=== PATIENT | female | born 1995 | race African-American/Black ===

== ENCOUNTER 2016-12-11 11:50 | Inpatient (IN) | payer MEDICAID ==
[~2016-12-11] VITALS: Ht 165.1 cm; Wt 111.9 kg
[2016-12-11] MEDS ORDERED: BACITRACIN TOP OINT 1 UD PKG TOP ONE (13:30)
[2016-12-11] MEDS ORDERED: VANCOMYCIN 1GM/250ML D5W 250 ML IV ONE (13:30)
[2016-12-11] MEDS ORDERED: TETANUS-DIPTH-ACEL PERTUSSIS 0.5ML SYRG IM ONE (13:30)
[2016-12-11] MEDS ORDERED: PIPERACILLIN-TAZOB 3.375GM 100 ML IV ONE (13:30)
[2016-12-11] MEDS ORDERED: KETOROLAC TROMETH 30 MG/ML 1ML VIAL IV ONE (13:30)
[2016-12-11] MEDS ORDERED: LORazepam 2MG/ML-1ML VIAL IV ONE (13:30)
[2016-12-11 13:59] LABS: Basophils # (auto) 0 uL; Basophils % (auto) 0.3 % (0.0-2.0); DEFINITIVE VIEW TRANSMISSION; Eosinophils # (auto) 0.1 uL; Eosinophils % (auto) 0.8 % (0.0-7.0); Hemoglobin 12.1 g/dL (12.2-16.2); Lymphocytes # (auto) 1.8 uL; Mean Platelet Volume 7.6 fL (7.4-10.4); Monocytes # (auto) 0.4 uL; Monocytes % (auto) 4.9 % (0.0-12.0)
[2016-12-11 14:03] LABS: Hematocrit 36.9 % (36.0-46.0); Lymphocytes % (auto) 21.1 % (10.0-50.0); Mean Corpuscular Hemoglobin 28.5 pg (28.0-32.0); Mean Corpuscular Hgb Conc. 32.7 g/dL (32.0-36.0); Mean Corpuscular Volume 87.2 fL (80.0-100.0); Neutrophils # (auto) 6.3 uL; Neutrophils % (auto) 72.9 % (37.0-80.0); Platelet Count (auto) 394 10^3/uL (140-450); Red Cell Distribution Width 19.2 % (11.6-16.0); White Blood Cell 8.6 10^3/uL (4.4-10.8)
[2016-12-11 14:32] LABS: Albumin 3.4 g/dL (3.4-5.0); BUN/Creatinine Ratio 4.3; Bilirubin, Total 0.4 mg/dL (0.2-1.0); Calcium 8.9 mg/dL (8.5-10.1); Potassium 3.8 mmol/L (3.5-5.1); Total Protein 7.6 g/dL (6.4-8.2)
[2016-12-11] MEDS ORDERED: ACETAMINOPHEN 325 MG TAB PO PRN (17:30)
[2016-12-11] MEDS ORDERED: VANCOMYCIN PER PHARMACY 0 MG IV SCH (17:30)
[2016-12-11] MEDS ORDERED: TEMAZEPAM 15 MG CAP PO PRN (17:30)
[2016-12-11] MEDS ORDERED: DOCUSATE SOD 100 MG CAP PO PRN (17:30)
[2016-12-11] MEDS ORDERED: cefTRIAXone 1GM/50ML D5W 50 ML IV ONE (18:15)
[2016-12-11] MEDS ORDERED: MULTIPLE VITAMIN TAB PO ONE (18:15)
[2016-12-11 18:44] LABS: Urine Bilirubin Negative (Negative); Urine Blood Negative /uL (Negative); Urine Color Yellow (Yellow); Urine Ketone Negative (Negative); Urine Nitrite Negative (Negative); Urine RBC 1 /hpf (0 - 4); Urine Squamous Epithelial Cell FEW /hpf (<5); Urine Urobilinogen Normal (Negative); Urine pH 6.5 (5.0-8.0)
[2016-12-11 18:45] LABS: Urine Glucose 4+ mg/dL (Normal)
[2016-12-11] MEDS: MORPHINE SULF INJ 2 MG/ML SYRINGE 1ML IV PRN (20:10)
[2016-12-11] MEDS: ONDANSETRON HCL 4 MG/2 ML VIAL IV PRN (20:10)
[2016-12-11 21:15] VITALS: BP 132/58
[2016-12-11] MEDS: HYDROcodone-ACET 5/325MG TAB PO PRN (21:47)
[2016-12-11] MEDS: SODIUM CHLOR 0.9% PF (SALINE LOCK) 10ML VIAL IV SCH (23:17)
[2016-12-11] MEDS: VANCOMYCIN 1GM/250ML D5W 250 ML IV SCH (23:17)
[2016-12-11] MEDS: ASCORBIC ACID 500 MG TAB PO SCH (23:18)
[2016-12-11] MEDS: FAMOTIDINE 20 MG TAB PO SCH (23:18)
[2016-12-12] MEDS: MORPHINE SULF INJ 2 MG/ML SYRINGE 1ML IV PRN ×3 (00:28→10:11)
[2016-12-12] MEDS: ONDANSETRON HCL 4 MG/2 ML VIAL IV PRN ×3 (00:37→06:36)
[2016-12-12] MEDS ORDERED: diphenhdrAMINE HCL 25 MG CAP PO ONE (01:30)
[2016-12-12] MEDS: SODIUM CHLOR 0.9% PF (SALINE LOCK) 10ML VIAL IV SCH (05:31)
[2016-12-12] MEDS: VANCOMYCIN 1GM/250ML D5W 250 ML IV SCH ×2 (05:37→14:00)
[2016-12-12 06:47] LABS: Basophils # (auto) 0 uL; Basophils % (auto) 0.2 % (0.0-2.0); DEFINITIVE VIEW TRANSMISSION; Eosinophils # (auto) 0.1 uL; Eosinophils % (auto) 1.1 % (0.0-7.0); Hematocrit 33.5 % (36.0-46.0); Hemoglobin 10.9 g/dL (12.2-16.2); Lymphocytes # (auto) 1.9 uL; Lymphocytes % (auto) 25.2 % (10.0-50.0); Mean Corpuscular Hemoglobin 28.5 pg (28.0-32.0); Mean Corpuscular Hgb Conc. 32.5 g/dL (32.0-36.0); Mean Corpuscular Volume 87.7 fL (80.0-100.0); Mean Platelet Volume 8.1 fL (7.4-10.4); Monocytes # (auto) 0.3 uL; Monocytes % (auto) 3.8 % (0.0-12.0); Neutrophils # (auto) 5.3 uL; Neutrophils % (auto) 69.7 % (37.0-80.0); Platelet Count (auto) 336 10^3/uL (140-450); Red Cell Distribution Width 19.2 % (11.6-16.0); White Blood Cell 7.6 10^3/uL (4.4-10.8)
[2016-12-12 07:00] LABS: Albumin 2.9 g/dL (3.4-5.0); BUN/Creatinine Ratio 3.3; Bilirubin, Total 0.5 mg/dL (0.2-1.0); Calcium 8.4 mg/dL (8.5-10.1); Potassium 3.4 mmol/L (3.5-5.1); Total Protein 6.6 g/dL (6.4-8.2)
[2016-12-12 08:00] VITALS: BP 104/63
[2016-12-12 09:00] VITALS: BP 104/63
[2016-12-12] MEDS ORDERED: cefTRIAXone 1GM/50ML D5W 50 ML IV SCH (09:00)
[2016-12-12] MEDS ORDERED: ZINC SULFATE 220 MG CAP PO SCH (10:00)
[2016-12-12] MEDS ORDERED: MULTIPLE VITAMIN TAB PO SCH (10:00)
[2016-12-12] MEDS: FAMOTIDINE 20 MG TAB PO SCH (10:11)
[2016-12-12] MEDS: ASCORBIC ACID 500 MG TAB PO SCH (10:12)
[2016-12-12 13:00] VITALS: BP 107/64
[2016-12-12] MEDS ORDERED: LEVO500T3 PO (13:09)
[2016-12-12] MEDS ORDERED: CLIN1CAP4 PO (13:09)
[2016-12-12] MEDS ORDERED: NOR5T PO (13:09)
[2016-12-12] MEDS: HYDROcodone-ACET 5/325MG TAB PO PRN (15:08)
[2016-12-12 15:21] VITALS: BP 104/63
[2016-12-12 16:02] VITALS: BP 122/86
== END 2016-12-12 18:00 | disposition home health service (06) | DRG 384 ==
LOC: ER 11:50 → TELE 11:51 → WEST WING 21:10
PROVIDERS: ADMIT Internal Medicine; ATTEND Internal Medicine
DX: S81.802A Unspecified open wound, left lower leg, initial encounter (principal); N39.0 Urinary tract infection, site not specified; L03.116 Cellulitis of left lower limb; F31.9 Bipolar disorder, unspecified; N18.2 Chronic kidney disease, stage 2 (mild); F17.210 Nicotine dependence, cigarettes, uncomplicated; F41.9 Anxiety disorder, unspecified; R39.11 Hesitancy of micturition; V49.40XA Driver injured in collision with unspecified motor vehicles in traffic accident, initial encounter; Y93.89 Activity, other specified; Y92.488 Other paved roadways as the place of occurrence of the external cause; Y99.8 Other external cause status
CPT/HCPCS: 36415; 80053; 81001; 85025; 87040; 87077; 87186; 87205; 90715; 93971; 96365; 96367; 96372; 96375; J0696; J1885; J2405; J2543

== ENCOUNTER 2017-05-27 09:29 | Emergency (ER) | payer MEDICAID ==
[~2017-05-27] VITALS: Ht 157.5 cm; Wt 63.5 kg
[~2017-05-27 09:29] MED LIST: CLIN1CAP4 PO; HYDR-4683 PO; LEVO500T21 PO
[2017-05-27 10:36] VITALS: BP 143/85
[2017-05-27 10:42] LABS: Urine RBC None Seen /hpf (0 - 4)
[2017-05-27 10:46] LABS: Basophils # (auto) 0 uL; Basophils % (auto) 0.5 % (0.0-2.0); Eosinophils # (auto) 0 uL; Eosinophils % (auto) 0.5 % (0.0-7.0); Hematocrit 36.4 % (36.0-46.0); Hemoglobin 11.8 g/dL (12.2-16.2); Lymphocytes # (auto) 1.3 uL; Lymphocytes % (auto) 13.6 % (10.0-50.0); Mean Corpuscular Hemoglobin 30.8 pg (28.0-32.0); Mean Corpuscular Hgb Conc. 32.4 g/dL (32.0-36.0); Mean Platelet Volume 6.8 fL (6.9-10.8); Monocytes # (auto) 0.6 uL; Monocytes % (auto) 5.7 % (0.0-12.0); Neutrophils # (auto) 7.7 uL; Neutrophils % (auto) 79.7 % (37.0-80.0); Platelet Count (auto) 405 10^3/uL (140-450); White Blood Cell 9.7 10^3/uL (4.4-10.8)
[2017-05-27 10:57] LABS: Red Cell Distribution Width 20.3 % (11.8-14.3)
[2017-05-27 11:01] LABS: Urine Bilirubin Negative (Negative); Urine Blood Negative /uL (Negative); Urine Color Yellow (Yellow); Urine Glucose Normal (Normal); Urine Ketone Negative (Negative); Urine Mucus FEW (None Seen); Urine Nitrite Negative (Negative); Urine Squamous Epithelial Cell MOD /hpf (<5); Urine Urobilinogen Normal (Negative)
[2017-05-27 11:16] LABS: BUN/Creatinine Ratio 9.7; Bilirubin, Total 0.3 mg/dL (0.2-1.0); Calcium 8.5 mg/dL (8.5-10.1); Potassium 4.1 mmol/L (3.5-5.1); Total Protein 7.8 g/dL (6.4-8.2)
[2017-05-27 11:21] LABS: Anisocytosis Slight; Platelet Estimate Adequate
== END 2017-05-27 14:50 | disposition home or self-care (01) ==
LOC: ER 09:29
DX: N39.0 Urinary tract infection, site not specified (principal); Z91.040 Latex allergy status; F17.210 Nicotine dependence, cigarettes, uncomplicated
CPT/HCPCS: 36415; 80053; 81001; 81025; 82150; 83690; 85025

== ENCOUNTER 2018-01-05 09:39 | Emergency (ER) | payer SELFPAY ==
[~2018-01-05] VITALS: Ht 165.1 cm; Wt 113.4 kg
[2018-01-05 09:58] VITALS: BP 138/96
[2018-01-05 10:17] LABS: Basophils # (auto) 0 uL; Basophils % (auto) 0.4 % (0.0-2.0); Eosinophils # (auto) 0 uL; Eosinophils % (auto) 0.2 % (0.0-7.0); Hematocrit 42.5 % (36.0-46.0); Lymphocytes # (auto) 1.5 uL; Lymphocytes % (auto) 14.4 % (10.0-50.0); Mean Corpuscular Hemoglobin 30.4 pg (28.0-32.0); Mean Corpuscular Volume 92.2 fL (80.0-100.0); Monocytes # (auto) 0.5 uL; Monocytes % (auto) 4.9 % (0.0-12.0); Neutrophils # (auto) 8.5 uL; Neutrophils % (auto) 80.1 % (37.0-80.0); Nucleated Red Blood Cells % 0.1 %; Platelet Count (auto) 388 10^3/uL (140-450); Red Blood Cells 4.61 10^6/uL (4.0-5.20); Red Cell Distribution Width 16.6 % (11.8-14.3); White Blood Cell 10.6 10^3/uL (4.4-10.8)
[2018-01-05] MEDS ORDERED: PANTOPRAZOLE 40 MG/10 ML VIAL IV STA (10:25)
[2018-01-05] MEDS ORDERED: SODIUM CHLORIDE 0.9% 1,000 ML IVB ONE (10:25)
[2018-01-05] MEDS ORDERED: MORPHINE SULFATE 8mg/ml INJ SDV IV ONE (10:30)
[2018-01-05] MEDS ORDERED: ONDANSETRON HCL 4 MG/2 ML VIAL IV ONE ×2 (10:30→11:30)
[2018-01-05 10:35] LABS: Alanine Aminotransferase 62 U/L (13-56); Albumin 3.6 g/dL (3.4-5.0); Amylase 48 U/L (25-115); Anion Gap 14 (5-15); Aspartate Aminotransferase 70 U/L (15-37); BUN/Creatinine Ratio 4.8; Blood Urea Nitrogen 4 mg/dL (7-18); Calcium 9.3 mg/dL (8.5-10.1); Carbon Dioxide 25 mmol/L (21-32); Chloride 98 mmol/L (98-107); GFR African American 107 mL/min; GFR Non-African American 89 mL/min; Glucose 98 mg/dL (74-106); Lipase 113 U/L (73-393); Sodium 137 mmol/L (136-145)
[2018-01-05 10:40] LABS: Alkaline Phosphatase 93 U/L (45-117); Bilirubin, Total 0.8 mg/dL (0.2-1.0); Total Protein 8.7 g/dL (6.4-8.2)
[2018-01-05 10:48] LABS: Potassium 2.9 mmol/L (3.5-5.1)
[2018-01-05] MEDS ORDERED: POTASSIUM CHL 20 Meq TABLET PO ONE (11:00)
[2018-01-05] MEDS ORDERED: ONDANSETRON HCL 4 MG/2 ML VIAL ONE (11:31)
[2018-01-05] MEDS ORDERED: PROCHLORPERAZINE EDISYLATE 5 MG/ML 2ML VIAL IV ONE (12:30)
== END 2018-01-05 13:34 | disposition home or self-care (01) ==
LOC: ER 09:39
DX: R11.10 Vomiting, unspecified (principal); R10.11 Right upper quadrant pain; E87.6 Hypokalemia; F17.210 Nicotine dependence, cigarettes, uncomplicated; Z87.442 Personal history of urinary calculi; Z91.040 Latex allergy status
CPT/HCPCS: 36415; 76705; 80053; 82150; 83690; 84484; 84702; 85025; 94761; 96361; 96374; 96375; 96376; 99285; C9113; J0780; J2270; J2405; J7030

== ENCOUNTER 2018-01-09 17:04 | Emergency (ER) | payer SELFPAY ==
[~2018-01-09] VITALS: Ht 165.1 cm; Wt 114.3 kg
[2018-01-09 17:11] VITALS: BP 143/103
== END 2018-01-09 19:56 | disposition left against medical advice (07) ==
LOC: ER 17:04
DX: K29.70 Gastritis, unspecified, without bleeding (principal); F17.210 Nicotine dependence, cigarettes, uncomplicated; F12.10 Cannabis abuse, uncomplicated; Z87.442 Personal history of urinary calculi; Z91.040 Latex allergy status; Z53.29 Procedure and treatment not carried out because of patient's decision for other reasons

== ENCOUNTER 2018-03-26 15:00 | Emergency (ER) | payer MEDICAID ==
[~2018-03-26] VITALS: Ht 165.1 cm; Wt 113.4 kg
[2018-03-26 15:30] VITALS: BP 143/105
[2018-03-26] MEDS ORDERED: cefTRIAXone SOD 1,000 MG VL IM ONE (19:45)
[2018-03-26] MEDS ORDERED: LIDOCAINE 1% (LOCAL ANESTH.) PF 5ml SDV ONE (19:50)
[2018-03-26] MEDS ORDERED: KETOROLAC TROMETH 60MG/2ML VIAL IM ONE (20:00)
[2018-03-26] MEDS ORDERED: HYDROcodone-ACET 10/325MG TAB PO ONE (21:00)
[2018-03-26] MEDS ORDERED: PROMETHAZINE HCL 25 MG/ML 1ML IM ONE (21:00)
== END 2018-03-26 21:20 | disposition home or self-care (01) ==
LOC: ER 15:00
DX: K63.89 Other specified diseases of intestine (principal); F17.210 Nicotine dependence, cigarettes, uncomplicated
CPT/HCPCS: 74176; 96372; 99284; J0696; J1885; J2550

== ENCOUNTER 2018-04-03 08:52 | Emergency (ER) | payer MEDICAID ==
[~2018-04-03] VITALS: Ht 162.6 cm; Wt 113.4 kg
[2018-04-03] MEDS ORDERED: SODIUM CHLORIDE 0.9% 1,000 ML IV ONE ×3 (09:23→09:30)
[2018-04-03] MEDS ORDERED: KETOROLAC TROMETH 30 MG/ML 1ML VIAL IV ONE (09:30)
[2018-04-03] MEDS ORDERED: ONDANSETRON HCL 4 MG/2 ML VIAL IV ONE (09:30)
[2018-04-03 09:41] LABS: Basophils # (auto) 0 uL; Basophils % (auto) 0.3 % (0.0-2.0); Eosinophils # (auto) 0.1 uL; Hematocrit 39.1 % (36.0-46.0); Hemoglobin 12.8 g/dL (12.2-16.2); Lymphocytes # (auto) 1.5 uL; Lymphocytes % (auto) 18.2 % (10.0-50.0); Mean Corpuscular Hemoglobin 31.1 pg (28.0-32.0); Mean Corpuscular Hgb Conc. 32.9 g/dL (32.0-36.0); Mean Corpuscular Volume 94.7 fL (80.0-100.0); Monocytes # (auto) 0.5 uL; Neutrophils # (auto) 6.1 uL; Neutrophils % (auto) 74.5 % (37.0-80.0); Nucleated Red Blood Cells % 0.1 %; Platelet Count (auto) 379 10^3/uL (140-450); Red Blood Cells 4.12 10^6/uL (4.0-5.20); White Blood Cell 8.2 10^3/uL (4.4-10.8)
[2018-04-03 09:45] LABS: Red Cell Distribution Width 20.7 % (11.8-14.3)
[2018-04-03 09:52] LABS: Albumin 3.1 g/dL (3.4-5.0); BUN/Creatinine Ratio 4.7; Calcium 8.4 mg/dL (8.5-10.1)
[2018-04-03 09:54] LABS: Bilirubin, Total 0.4 mg/dL (0.2-1.0); Total Protein 7.5 g/dL (6.4-8.2)
[2018-04-03 10:00] LABS: Potassium 2.9 mmol/L (3.5-5.1)
[2018-04-03] MEDS ORDERED: POTASSIUM EFFERVESENT TAB 25 MEQ PO ONE (10:15)
[2018-04-03 10:40] LABS: Urine Bacteria NONE SEEN /hpf (None Seen); Urine Blood 3+ /uL (Negative); Urine Mucus FEW (None Seen); Urine Specific Gravity 1.015 (1.001-1.035); Urine WBC 168 /hpf (0 - 5)
[2018-04-03 11:06] VITALS: BP 125/72
== END 2018-04-03 12:06 | disposition home or self-care (01) ==
LOC: ER 08:53
DX: N20.0 Calculus of kidney (principal); N39.0 Urinary tract infection, site not specified; R11.2 Nausea with vomiting, unspecified; F17.210 Nicotine dependence, cigarettes, uncomplicated; F12.10 Cannabis abuse, uncomplicated; Z91.040 Latex allergy status; Z88.1 Allergy status to other antibiotic agents
CPT/HCPCS: 36415; 74176; 80053; 81001; 85025; 94761; 96361; 96374; 96375; 99285; J1885; J2405

== ENCOUNTER 2018-07-28 01:23 | Emergency (ER) | payer MEDICAID ==
[~2018-07-28] VITALS: Ht 170.2 cm; Wt 99.8 kg
[~2018-07-28 01:23] MED LIST changes: +CIPR-173 PO; -CLIN1CAP4 PO; -HYDR-4683 PO; -LEVO500T21 PO; +PANT40T PO; +SUCR1TAB PO
[2018-07-28] MEDS ORDERED: SODIUM CHLORIDE 0.9% 1,000 ML IV ONE (02:02)
[2018-07-28 02:12] LABS: Basophils # (auto) 0.1 uL; Basophils % (auto) 0.5 % (0.0-2.0); Eosinophils # (auto) 0 uL; Eosinophils % (auto) 0.2 % (0.0-7.0); Hemoglobin 13.1 g/dL (12.2-16.2); Lymphocytes # (auto) 2.4 uL; Lymphocytes % (auto) 19.7 % (10.0-50.0); Mean Corpuscular Hgb Conc. 33.5 g/dL (32.0-36.0); Mean Corpuscular Volume 89.5 fL (80.0-100.0); Monocytes # (auto) 0.7 uL; Monocytes % (auto) 5.9 % (0.0-12.0); Neutrophils # (auto) 9.1 uL; Neutrophils % (auto) 73.7 % (37.0-80.0); Nucleated Red Blood Cells % 0.1 %; Platelet Count (auto) 465 10^3/uL (140-450); Red Blood Cells 4.35 10^6/uL (4.0-5.20); White Blood Cell 12.3 10^3/uL (4.4-10.8)
[2018-07-28 02:13] LABS: Red Cell Distribution Width 20.1 % (11.8-14.3)
[2018-07-28] MEDS ORDERED: PROMETHAZINE HCL 25 MG/ML 1ML IV ONE ×2 (02:15→02:30)
[2018-07-28 02:26] LABS: Partial Thromboplastin Time 27.3 sec (23.78-33.04); Prothrombin Time 10.7 sec (9.27-12.13)
[2018-07-28] MEDS ORDERED: diphenhdrAMINE HCL 50 MG/1 ML VL IV ONE (02:45)
[2018-07-28 02:51] LABS: Alanine Aminotransferase 29 U/L (13-56); Albumin 3.7 g/dL (3.4-5.0); Anion Gap 16 (5-15); Aspartate Aminotransferase 28 U/L (15-37); BUN/Creatinine Ratio 5.1; Blood Alcohol < 3.0 mg/dL (0-5); Blood Urea Nitrogen 4 mg/dL (7-18); Calcium 8.8 mg/dL (8.5-10.1); Carbon Dioxide 16 mmol/L (21-32); Chloride 105 mmol/L (98-107); GFR African American 117 mL/min; GFR Non-African American 96 mL/min; Glucose 145 mg/dL (74-106); Sodium 137 mmol/L (136-145)
[2018-07-28 02:56] LABS: Potassium 2.9 mmol/L (3.5-5.1)
[2018-07-28 02:59] LABS: Amylase 93 U/L (25-115); Lipase 405 U/L (73-393)
[2018-07-28 03:00] LABS: Alkaline Phosphatase 89 U/L (45-117); Bilirubin, Total 0.9 mg/dL (0.2-1.0); Total Protein 8.1 g/dL (6.4-8.2)
[2018-07-28] MEDS ORDERED: POTASSIUM CHL 20MEQ/100ML 100 ML IV ONE (03:00)
[2018-07-28] MEDS ORDERED: MORPHINE SULFATE 4 MG/ML SYR/VIAL IV ONE ×2 (03:30→04:00)
[2018-07-28] MEDS ORDERED: POTASSIUM EFFERVESENT TAB 25 MEQ PO ONE (04:00)
[2018-07-28 04:06] LABS: Urine Bacteria FEW /hpf (None Seen); Urine Blood Negative /uL (Negative); Urine Mucus FEW (None Seen); Urine Specific Gravity 1.022 (1.001-1.035); Urine WBC 2 /hpf (0 - 5)
[2018-07-28 04:12] LABS: Urine Pregnacy Test Positive (Negative)
[2018-07-28 04:14] LABS: Alcohol, Urine < 3.0 mg/dL (0-5); Amphetamine Screen, Urine NEGATIVE (NEGATIVE); Barbiturate Scree,Urine NEGATIVE (NEGATIVE); Benzodiazephine Screen, Urine NEGATIVE (NEGATIVE); Cannabinoid Screen, Urine POSITIVE (NEGATIVE); Cocaine Screen, Urine NEGATIVE (NEGATIVE); Opiate Scree,Urine NEGATIVE (NEGATIVE); Phencyclidine Screen, Urine NEGATIVE (NEGATIVE)
[2018-07-28] MEDS ORDERED: METOCLOPRAMIDE HCL 5MG/ml INJ 2ml VIAL IV ONE ×2 (04:45→05:00)
[2018-07-28] MEDS ORDERED: ONDANSETRON HCL 4 MG/2 ML VIAL IV ONE (07:30)
[2018-07-28] MEDS ORDERED: HYDROmorphone HCL 2 MG/ML VL IV ONE (07:30)
[2018-07-28 07:31] VITALS: BP 138/73
== END 2018-07-28 07:48 | disposition home or self-care (01) ==
LOC: EDBD 01:23 → ER 01:31
DX: O21.1 Hyperemesis gravidarum with metabolic disturbance (principal); K85.90 Acute pancreatitis without necrosis or infection, unspecified; O99.331 Smoking (tobacco) complicating pregnancy, first trimester; F17.210 Nicotine dependence, cigarettes, uncomplicated; O99.321 Drug use complicating pregnancy, first trimester; F11.10 Opioid abuse, uncomplicated; F12.10 Cannabis abuse, uncomplicated; Z3A.00 Weeks of gestation of pregnancy not specified; Z91.040 Latex allergy status
CPT/HCPCS: 36415; 76705; 76801; 76817; 80053; 80307; 80320; 81001; 81025; 82150; 83690; 84702; 85025; 85610; 85730; 94761; 96361; 96365; 96375; 99284; J1170; J1200; J2270; J2405; J2550; J2765; J3480; J7030

== ENCOUNTER 2018-07-29 08:22 | Inpatient (IN) | payer MEDICAID ==
[~2018-07-29] VITALS: Ht 165.1 cm; Wt 106.0 kg
[2018-07-29 09:12] LABS: Basophils # (auto) 0 uL; Eosinophils % (auto) 0.4 % (0.0-7.0); Hematocrit 40.8 % (36.0-46.0); Mean Corpuscular Hemoglobin 30.2 pg (28.0-32.0); Monocytes # (auto) 0.7 uL; Nucleated Red Blood Cells % 0.1 %
[2018-07-29 09:14] LABS: Basophils % (auto) 0.3 % (0.0-2.0); Eosinophils # (auto) 0 uL; Hemoglobin 13.6 g/dL (12.2-16.2); Lymphocytes # (auto) 1.2 uL; Lymphocytes % (auto) 10.4 % (10.0-50.0); Mean Corpuscular Hgb Conc. 33.2 g/dL (32.0-36.0); Mean Corpuscular Volume 90.9 fL (80.0-100.0); Monocytes % (auto) 5.6 % (0.0-12.0); Neutrophils % (auto) 83.3 % (37.0-80.0); Platelet Count (auto) 486 10^3/uL (140-450); Red Blood Cells 4.49 10^6/uL (4.0-5.20)
[2018-07-29 09:18] LABS: Red Cell Distribution Width 20.5 % (11.8-14.3)
[2018-07-29 09:28] LABS: Albumin 3.7 g/dL (3.4-5.0); BUN/Creatinine Ratio 2.4; Calcium 9.1 mg/dL (8.5-10.1)
[2018-07-29 09:31] LABS: Total Protein 8.3 g/dL (6.4-8.2)
[2018-07-29] MEDS ORDERED: SODIUM CHLORIDE 0.9% 1,000 ML IV ONE (10:43)
[2018-07-29] MEDS ORDERED: cefTRIAXone 1GM/50ML D5W 50 ML IV ONE (10:45)
[2018-07-29 12:22] LABS: Amylase 80 U/L (25-115); Lipase 258 U/L (73-393)
[2018-07-29] MEDS: D5W/SOD CHL 0.45%/KCL 40MEQ 1,000 ML IV SCH ×2 (12:30→21:57)
[2018-07-29] MEDS ORDERED: ACETAMINOPHEN 500 MG TAB PO PRN (12:30)
[2018-07-29] MEDS ORDERED: POTASSIUM EFFERVESENT TAB 25 MEQ PO ONE (12:30)
[2018-07-29] MEDS: PANTOPRAZOLE 40 MG TAB PO SCH (12:40)
[2018-07-29] MEDS: METOCLOPRAMIDE HCL 5MG/ml INJ 2ml VIAL IV SCH ×2 (12:59→18:32)
[2018-07-29] MEDS ORDERED: PROMETHAZINE HCL 25 MG/ML 1ML IV ONE (14:00)
[2018-07-29] MEDS ORDERED: ACETAMINOPHEN 650 mg PER 20 mL UD PO ONE (14:00)
[2018-07-29] MEDS ORDERED: MORPHINE SULFATE 4 MG/ML SYR/VIAL IV ONE (15:30)
[2018-07-29 16:36] LABS: Urine Bacteria NONE SEEN /hpf (None Seen); Urine Blood Negative /uL (Negative); Urine Mucus FEW (None Seen); Urine Specific Gravity 1.016 (1.001-1.035); Urine WBC 1 /hpf (0 - 5)
[2018-07-29 16:45] LABS: Alcohol, Urine < 3.0 mg/dL (0-5); Amphetamine Screen, Urine NEGATIVE (NEGATIVE); Barbiturate Scree,Urine NEGATIVE (NEGATIVE); Benzodiazephine Screen, Urine NEGATIVE (NEGATIVE); Cannabinoid Screen, Urine POSITIVE (NEGATIVE); Cocaine Screen, Urine NEGATIVE (NEGATIVE); Opiate Scree,Urine NEGATIVE (NEGATIVE); Phencyclidine Screen, Urine NEGATIVE (NEGATIVE)
[2018-07-29] MEDS ORDERED: KETOROLAC TROMETH 30 MG/ML 1ML VIAL IV ONE (18:30)
[2018-07-29 20:30] VITALS: BP 154/102
[2018-07-29 21:30] VITALS: BP 154/102
[2018-07-30] MEDS ORDERED: SERT25TA84 PO (01:51)
[2018-07-30] MEDS ORDERED: QUET50TA PO (01:51)
[2018-07-30] MEDS: METOCLOPRAMIDE HCL 5MG/ml INJ 2ml VIAL IV SCH ×3 (06:38→18:19)
[2018-07-30] MEDS: D5W/SOD CHL 0.45%/KCL 40MEQ 1,000 ML IV SCH ×3 (07:08→20:54)
[2018-07-30 07:25] LABS: Basophils # (auto) 0 uL; Basophils % (auto) 0.3 % (0.0-2.0); Eosinophils # (auto) 0 uL; Hematocrit 37.2 % (36.0-46.0); Hemoglobin 12.5 g/dL (12.2-16.2); Lymphocytes # (auto) 1.3 uL; Mean Corpuscular Hemoglobin 30.7 pg (28.0-32.0); Mean Corpuscular Hgb Conc. 33.5 g/dL (32.0-36.0); Mean Corpuscular Volume 91.5 fL (80.0-100.0); Monocytes # (auto) 0.6 uL; Monocytes % (auto) 6.2 % (0.0-12.0); Neutrophils # (auto) 8.3 uL; Neutrophils % (auto) 80.5 % (37.0-80.0); Platelet Count (auto) 394 10^3/uL (140-450); Red Blood Cells 4.06 10^6/uL (4.0-5.20); White Blood Cell 10.3 10^3/uL (4.4-10.8)
[2018-07-30 07:31] LABS: Red Cell Distribution Width 20.2 % (11.8-14.3)
[2018-07-30 07:44] LABS: BUN/Creatinine Ratio 2.4; Calcium 8.6 mg/dL (8.5-10.1); Potassium 3.2 mmol/L (3.5-5.1)
[2018-07-30] MEDS: PANTOPRAZOLE 40 MG TAB PO SCH (08:50)
[2018-07-30 09:00] VITALS: BP 134/89
[2018-07-30] MEDS ORDERED: MORPHINE SULFATE 4 MG/ML SYR/VIAL IV PRN (11:45)
[2018-07-30] MEDS: HYDROcodone-ACET 5/325MG TAB PO PRN (11:58)
[2018-07-30 13:00] VITALS: BP 151/90
[2018-07-30] MEDS ORDERED: QUEtiapine FUMARATE 25 MG TAB PO ONE (13:45)
[2018-07-30] MEDS ORDERED: SERTRALINE HCL 50 MG TAB PO ONE (13:45)
[2018-07-30] MEDS ORDERED: POTASSIUM EFFERVESENT TAB 25 MEQ PO ONE (13:45)
[2018-07-30] MEDS ORDERED: NALBUPHINE HCL 10 MG/1ml INJECTION IV ONE (14:15)
[2018-07-30 16:00] VITALS: BP 158/106
[2018-07-30 22:07] VITALS: BP 129/57
[2018-07-30] MEDS: NALBUPHINE HCL 10 MG/1ml INJECTION IV PRN (23:16)
[2018-07-31] MEDS: METOCLOPRAMIDE HCL 5MG/ml INJ 2ml VIAL IV SCH ×5 (00:37→23:46)
[2018-07-31] MEDS: NALBUPHINE HCL 10 MG/1ml INJECTION IV PRN ×4 (04:03→20:42)
[2018-07-31] MEDS: D5W/SOD CHL 0.45%/KCL 40MEQ 1,000 ML IV SCH ×2 (04:24→12:30)
[2018-07-31] MEDS: HYDROcodone-ACET 5/325MG TAB PO PRN ×2 (06:00→23:46)
[2018-07-31 06:15] LABS: Basophils # (auto) 0 uL; Basophils % (auto) 0.2 % (0.0-2.0); Eosinophils # (auto) 0 uL; Eosinophils % (auto) 0.2 % (0.0-7.0); Hematocrit 34.7 % (36.0-46.0); Hemoglobin 11.6 g/dL (12.2-16.2); Lymphocytes # (auto) 1.5 uL; Lymphocytes % (auto) 18.3 % (10.0-50.0); Mean Corpuscular Hemoglobin 30.8 pg (28.0-32.0); Mean Corpuscular Hgb Conc. 33.4 g/dL (32.0-36.0); Mean Corpuscular Volume 92.2 fL (80.0-100.0); Monocytes # (auto) 0.5 uL; Monocytes % (auto) 6.7 % (0.0-12.0); Neutrophils % (auto) 74.6 % (37.0-80.0); Platelet Count (auto) 307 10^3/uL (140-450); Red Blood Cells 3.76 10^6/uL (4.0-5.20); White Blood Cell 8.1 10^3/uL (4.4-10.8)
[2018-07-31 06:26] LABS: Red Cell Distribution Width 20.2 % (11.8-14.3)
[2018-07-31 06:34] LABS: Potassium 3.3 mmol/L (3.5-5.1)
[2018-07-31 06:40] LABS: BUN/Creatinine Ratio 4.9; Calcium 8.4 mg/dL (8.5-10.1)
[2018-07-31 09:00] VITALS: BP 108/67
[2018-07-31] MEDS: QUEtiapine FUMARATE 25 MG TAB PO SCH (09:09)
[2018-07-31] MEDS: SERTRALINE HCL 50 MG TAB PO SCH (09:09)
[2018-07-31] MEDS: PANTOPRAZOLE 40 MG TAB PO SCH (09:09)
[2018-07-31 13:00] VITALS: BP 157/90
[2018-07-31] MEDS ORDERED: POTASSIUM CHL 20 Meq TABLET PO ONE (14:15)
[2018-07-31] MEDS: SODIUM CHLORIDE 0.9% 1,000 ML IV SCH (16:37)
[2018-07-31 17:00] VITALS: BP 112/66
[2018-07-31 22:00] VITALS: BP 127/81
[2018-08-01 05:00] VITALS: BP 146/77
[2018-08-01] MEDS: METOCLOPRAMIDE HCL 5MG/ml INJ 2ml VIAL IV SCH ×4 (05:35→23:27)
[2018-08-01] MEDS: NALBUPHINE HCL 10 MG/1ml INJECTION IV PRN ×4 (05:35→23:28)
[2018-08-01] MEDS: SODIUM CHLORIDE 0.9% 1,000 ML IV SCH ×3 (07:10→21:00)
[2018-08-01] MEDS: HYDROcodone-ACET 5/325MG TAB PO PRN ×3 (08:37→21:51)
[2018-08-01 09:00] VITALS: BP 140/74
[2018-08-01] MEDS: QUEtiapine FUMARATE 25 MG TAB PO SCH (10:02)
[2018-08-01] MEDS: SERTRALINE HCL 50 MG TAB PO SCH (10:02)
[2018-08-01] MEDS: PANTOPRAZOLE 40 MG TAB PO SCH (10:03)
[2018-08-01 10:47] LABS: Potassium 3.6 mmol/L (3.5-5.1)
[2018-08-01 10:49] LABS: Magnesium 1.7 mg/dL (1.6-2.6)
[2018-08-01 13:00] VITALS: BP 141/76
[2018-08-01 16:56] VITALS: BP 104/60
[2018-08-01 21:55] VITALS: BP 128/67
[2018-08-02 04:47] VITALS: BP 128/74
[2018-08-02] MEDS: SODIUM CHLORIDE 0.9% 1,000 ML IV SCH (06:20)
[2018-08-02] MEDS: NALBUPHINE HCL 10 MG/1ml INJECTION IV PRN ×2 (06:20→09:59)
[2018-08-02] MEDS: METOCLOPRAMIDE HCL 5MG/ml INJ 2ml VIAL IV SCH (06:20)
[2018-08-02 07:54] VITALS: BP 100/53
[2018-08-02] MEDS: PANTOPRAZOLE 40 MG TAB PO SCH (10:00)
[2018-08-02] MEDS: QUEtiapine FUMARATE 25 MG TAB PO SCH (10:00)
[2018-08-02] MEDS: SERTRALINE HCL 50 MG TAB PO SCH (10:00)
[2018-08-02 11:37] VITALS: BP 100/53
== END 2018-08-02 12:15 | disposition home or self-care (01) | DRG 465 ==
LOC: EDBD 08:22 → ER 08:22 → OVERFLOW 12:48 → EAST 20:29
PROVIDERS: ADMIT Internal Medicine; ATTEND Internal Medicine
DX: N20.0 Calculus of kidney (principal); K85.90 Acute pancreatitis without necrosis or infection, unspecified; R65.10 Systemic inflammatory response syndrome (SIRS) of non-infectious origin without acute organ dysfunction; E66.01 Morbid (severe) obesity due to excess calories; K76.0 Fatty (change of) liver, not elsewhere classified; I10 Essential (primary) hypertension; E11.9 Type 2 diabetes mellitus without complications; Z68.39 Body mass index [BMI] 39.0-39.9, adult; F12.90 Cannabis use, unspecified, uncomplicated; F32.9 Major depressive disorder, single episode, unspecified; F41.9 Anxiety disorder, unspecified; F17.210 Nicotine dependence, cigarettes, uncomplicated; Z82.49 Family history of ischemic heart disease and other diseases of the circulatory system; Z91.040 Latex allergy status; Z83.3 Family history of diabetes mellitus; Z87.442 Personal history of urinary calculi; O21.1 Hyperemesis gravidarum with metabolic disturbance
CPT/HCPCS: 36415; 76705; 76775; 76801; 76817; 80048; 80053; 80307; 81001; 82150; 83690; 83735; 84132; 84702; 85025; 87081; 96365; 96366; 96375; G0378; J0696; J1885

== ENCOUNTER → 2018-10-02 | Emergency (ER) | payer MEDICAID ==
[~2018-10-02] MED LIST changes: -CIPR-173 PO; +QUET50TA PO; +SERT25TA84 PO
== END | disposition left against medical advice (07) ==
LOC: ER 10:29
DX: O26.851 Spotting complicating pregnancy, first trimester (principal); Z3A.00 Weeks of gestation of pregnancy not specified; Z53.21 Procedure and treatment not carried out due to patient leaving prior to being seen by health care provider

== ENCOUNTER 2018-10-03 11:12 | Emergency (ER) | payer MEDICAID ==
[~2018-10-03] VITALS: Ht 165.1 cm; Wt 100.7 kg
[2018-10-03 13:10] LABS: Urine WBC None Seen /hpf (0 - 5)
[2018-10-03 13:16] LABS: Basophils # (auto) 0.1 uL; Basophils % (auto) 0.9 % (0.0-2.0); Eosinophils # (auto) 0 uL; Eosinophils % (auto) 0.3 % (0.0-7.0); Hemoglobin 13.5 g/dL (12.2-16.2); Lymphocytes # (auto) 1.1 uL; Lymphocytes % (auto) 11.8 % (10.0-50.0); Mean Corpuscular Hemoglobin 30.2 pg (28.0-32.0); Mean Corpuscular Hgb Conc. 33.8 g/dL (32.0-36.0); Mean Corpuscular Volume 89.4 fL (80.0-100.0); Monocytes # (auto) 0.4 uL; Monocytes % (auto) 4.2 % (0.0-12.0); Neutrophils % (auto) 82.8 % (37.0-80.0); Nucleated Red Blood Cells % 0.1 %; Platelet Count (auto) 301 10^3/uL (140-450); Red Blood Cells 4.48 10^6/uL (4.0-5.20); Red Cell Distribution Width 14.4 % (11.8-14.3); White Blood Cell 9.7 10^3/uL (4.4-10.8)
[2018-10-03 13:34] LABS: Albumin 3.2 g/dL (3.4-5.0); Potassium 3.3 mmol/L (3.5-5.1)
[2018-10-03 13:40] LABS: BUN/Creatinine Ratio 3.4; Bilirubin, Total 0.3 mg/dL (0.2-1.0); Total Protein 7.9 g/dL (6.4-8.2)
[2018-10-03 13:44] LABS: Amphetamine Screen, Urine NEGATIVE (NEGATIVE); Barbiturate Scree,Urine NEGATIVE (NEGATIVE); Benzodiazephine Screen, Urine NEGATIVE (NEGATIVE); Cannabinoid Screen, Urine POSITIVE (NEGATIVE); Cocaine Screen, Urine NEGATIVE (NEGATIVE); Opiate Scree,Urine NEGATIVE (NEGATIVE); Phencyclidine Screen, Urine NEGATIVE (NEGATIVE)
[2018-10-03 15:12] LABS: Urine Amorphous Crystal FEW /hpf (None Seen); Urine Bacteria NONE SEEN /hpf (None Seen); Urine Blood Negative /uL (Negative); Urine Mucus MODERATE (None Seen)
[2018-10-03 15:16] LABS: Urine Specific Gravity 1.028 (1.001-1.035)
[2018-10-03] MEDS ORDERED: POTASSIUM EFFERVESENT TAB 25 MEQ PO ONE (16:15)
[2018-10-03 16:40] VITALS: BP 120/83
[2018-10-03] MEDS ORDERED: ONDANSETRON ODT 4 MG TAB PO ONE ×2 (16:44→16:45)
== END 2018-10-03 16:47 | disposition home or self-care (01) ==
LOC: ER 11:14
DX: O26.891 Other specified pregnancy related conditions, first trimester (principal); R10.9 Unspecified abdominal pain; R19.7 Diarrhea, unspecified; Z91.040 Latex allergy status; Z79.899 Other long term (current) drug therapy; Z87.442 Personal history of urinary calculi; Z3A.13 13 weeks gestation of pregnancy
CPT/HCPCS: 36415; 76805; 80053; 80307; 81001; 84702; 85025; 99284; Q0162

== ENCOUNTER 2018-11-12 19:59 | Emergency (ER) | payer MEDICAID ==
[~2018-11-12] VITALS: Ht 165.1 cm; Wt 99.8 kg
[2018-11-12 20:33] VITALS: BP 114/73
== END 2018-11-12 20:40 | disposition left against medical advice (07) ==
LOC: ER 20:04
DX: R10.30 Lower abdominal pain, unspecified (principal); R11.2 Nausea with vomiting, unspecified; Z53.21 Procedure and treatment not carried out due to patient leaving prior to being seen by health care provider

== ENCOUNTER 2019-01-27 09:42 | Emergency (ER) | payer MEDICAID ==
[~2019-01-27] VITALS: Ht 165.1 cm; Wt 95.3 kg
[2019-01-27] MEDS ORDERED: LORazepam 2MG/ML-1ML VIAL IV ONE (10:15)
[2019-01-27] MEDS ORDERED: SODIUM CHLORIDE 0.9% 1,000 ML IV ONE (10:15)
[2019-01-27 10:37] LABS: Basophils # (auto) 0 uL; Basophils % (auto) 0.6 % (0.0-2.0); Eosinophils # (auto) 0.1 uL; Eosinophils % (auto) 1.7 % (0.0-7.0); Hematocrit 36.2 % (36.0-46.0); Hemoglobin 11.7 g/dL (12.2-16.2); Lymphocytes # (auto) 1.7 uL; Mean Corpuscular Hemoglobin 30.3 pg (28.0-32.0); Mean Corpuscular Hgb Conc. 32.3 g/dL (32.0-36.0); Mean Corpuscular Volume 93.6 fL (80.0-100.0); Monocytes # (auto) 0.4 uL; Monocytes % (auto) 4.7 % (0.0-12.0); Neutrophils # (auto) 5.3 uL; Nucleated Red Blood Cells % 0.1 %; Platelet Count (auto) 361 10^3/uL (140-450); Red Blood Cells 3.86 10^6/uL (4.0-5.20); White Blood Cell 7.5 10^3/uL (4.4-10.8)
[2019-01-27 10:53] LABS: Anion Gap 11 (5-15); BUN/Creatinine Ratio 4.7; Blood Alcohol < 3.0 mg/dL (0-5); Blood Urea Nitrogen 4 mg/dL (7-18); Calcium 8.1 mg/dL (8.5-10.1); Carbon Dioxide 24 mmol/L (21-32); Chloride 110 mmol/L (98-107); GFR African American 103 mL/min; GFR Non-African American 85 mL/min; Glucose 78 mg/dL (74-106); Potassium 3.5 mmol/L (3.5-5.1); Sodium 145 mmol/L (136-145)
[2019-01-27 11:43] LABS: Alcohol, Urine < 3.0 mg/dL (0-5); Amphetamine Screen, Urine NEGATIVE (NEGATIVE); Barbiturate Scree,Urine NEGATIVE (NEGATIVE); Benzodiazephine Screen, Urine POSITIVE (NEGATIVE); Cannabinoid Screen, Urine POSITIVE (NEGATIVE); Cocaine Screen, Urine POSITIVE (NEGATIVE); Opiate Scree,Urine NEGATIVE (NEGATIVE); Phencyclidine Screen, Urine NEGATIVE (NEGATIVE)
[2019-01-27] MEDS ORDERED: ALPRAZolam 0.5 MG TAB PO ONE (13:15)
[2019-01-27] MEDS ORDERED: hydrOXYzine 25 MG TAB or CAP PO PRN (14:45)
[2019-01-27] MEDS ORDERED: IBUPROFEN 600 MG TAB PO ONE (16:15)
[2019-01-27] MEDS ORDERED: clonazePAM 0.5 MG TAB PO ONE (20:15)
[2019-01-27] MEDS: IBUPROFEN 800 MG TAB PO PRN (21:01)
[2019-01-27] MEDS ORDERED: ZOLPIDEM TARTRATE 5 MG TAB PO ONE (23:30)
[2019-01-28] MEDS ORDERED: VENLAFAXINE HCL 37.5mg XR cap PO SCH (06:00)
[2019-01-28] MEDS: IBUPROFEN 800 MG TAB PO PRN ×3 (06:33→21:21)
[2019-01-28] MEDS: clonazePAM 0.5 MG TAB PO PRN ×2 (06:34→21:21)
[2019-01-28] MEDS ORDERED: LORazepam 0.5 MG TAB PO ONE ×2 (08:15→17:15)
[2019-01-28] MEDS ORDERED: ZOLPIDEM TARTRATE 5 MG TAB PO ONE (21:00)
[2019-01-28] MEDS ORDERED: cloNIDine HCL 0.1 MG TAB PO ONE (22:45)
[2019-01-29] MEDS ORDERED: HYDROcodone-ACET 10/325MG TAB PO ONE (02:30)
[2019-01-29] MEDS ORDERED: LORazepam 0.5 MG TAB PO ONE (02:30)
[2019-01-29] MEDS ORDERED: cloNIDine HCL 0.1 MG TAB PO ONE (03:45)
[2019-01-29 03:50] VITALS: BP 147/117
== END 2019-01-29 03:51 | disposition short-term general hospital (02) ==
LOC: ER 09:44
DX: O99.345 Other mental disorders complicating the puerperium (principal); F53.0 Postpartum depression; F41.9 Anxiety disorder, unspecified; Z87.442 Personal history of urinary calculi; Z98.890 Other specified postprocedural states; Z79.899 Other long term (current) drug therapy; Z91.040 Latex allergy status
CPT/HCPCS: 36415; 80048; 80307; 80320; 85025; 94761; 96374; 99285; J2060; J7030

== ENCOUNTER 2019-04-25 11:29 | Emergency (ER) | payer MEDICAID ==
[~2019-04-25] VITALS: Ht 167.6 cm; Wt 90.7 kg
[2019-04-25] MEDS ORDERED: PROCHLORPERAZINE EDISYLATE 5 MG/ML 2ML VIAL IV ONE (11:45)
[2019-04-25] MEDS ORDERED: SODIUM CHLORIDE 0.9% 1,000 ML IV ONE ×2 (11:48)
[2019-04-25] MEDS ORDERED: LORazepam 2MG/ML-1ML VIAL IV ONE (12:00)
[2019-04-25 12:54] LABS: Basophils # (auto) 0 uL; Basophils % (auto) 0.2 % (0.0-2.0); Eosinophils # (auto) 0 uL; Hematocrit 40.8 % (36.0-46.0); Hemoglobin 13.6 g/dL (12.2-16.2); Lymphocytes # (auto) 0.7 uL; Lymphocytes % (auto) 11.8 % (10.0-50.0); Mean Corpuscular Hgb Conc. 33.3 g/dL (32.0-36.0); Mean Corpuscular Volume 90.2 fL (80.0-100.0); Monocytes # (auto) 0.1 uL; Monocytes % (auto) 1.3 % (0.0-12.0); Neutrophils # (auto) 5.4 uL; Neutrophils % (auto) 86.7 % (37.0-80.0); Platelet Count (auto) 263 10^3/uL (140-450); Red Blood Cells 4.53 10^6/uL (4.0-5.20); Red Cell Distribution Width 13.9 % (11.8-14.3); White Blood Cell 6.2 10^3/uL (4.4-10.8)
[2019-04-25] MEDS ORDERED: KETOROLAC TROMETH 30 MG/ML 1ML VIAL IV ONE ×2 (13:00→17:00)
[2019-04-25 13:16] LABS: Albumin 3.8 g/dL (3.4-5.0); Calcium 8.7 mg/dL (8.5-10.1); Potassium 3.5 mmol/L (3.5-5.1)
[2019-04-25 13:20] LABS: BUN/Creatinine Ratio 6.2; Bilirubin, Total 0.3 mg/dL (0.2-1.0)
[2019-04-25] MEDS ORDERED: ONDANSETRON HCL 4 MG/2 ML VIAL IV ONE (14:15)
[2019-04-25 15:50] VITALS: BP 167/107
== END 2019-04-25 17:32 | disposition home or self-care (01) ==
LOC: EDBD 11:29 → ER 11:35
DX: N20.0 Calculus of kidney (principal); R11.2 Nausea with vomiting, unspecified; F12.10 Cannabis abuse, uncomplicated; Z91.040 Latex allergy status
CPT/HCPCS: 36415; 74176; 80053; 82150; 83690; 85025; 96361; 96374; 96375; 96376; 99284; J0780; J1885; J2060; J2405; J7030

== ENCOUNTER 2019-12-14 21:01 | Emergency (ER) | payer MEDICAID ==
[~2019-12-14] VITALS: Ht 165.1 cm; Wt 108.9 kg
[2019-12-14 21:34] LABS: Basophils # (auto) 0 10 ^3/uL (0-0.2); Basophils % (auto) 0.4 % (0.0-2.0); Eosinophils # (auto) 0 10 ^3/uL (0-0.8); Eosinophils % (auto) 0.4 % (0.0-7.0); Hematocrit 39.7 % (36.0-46.0); Lymphocytes # (auto) 0.9 10 ^3/uL (0.4-5.4); Lymphocytes % (auto) 9.7 % (10.0-50.0); Mean Corpuscular Hemoglobin 29.3 pg (28.0-32.0); Mean Corpuscular Hgb Conc. 32.7 g/dL (32.0-36.0); Mean Corpuscular Volume 89.6 fL (80.0-100.0); Monocytes # (auto) 0.4 10 ^3/uL (0-1.3); Monocytes % (auto) 3.9 % (0.0-12.0); Neutrophils # (auto) 8.2 10 ^3/uL (1.6-8.6); Neutrophils % (auto) 85.6 % (37.0-80.0); Nucleated Red Blood Cells % 0.1 %; Platelet Count (auto) 302 10^3/uL (140-450); Red Blood Cells 4.43 10^6/uL (4.0-5.20); Red Cell Distribution Width 17.3 % (11.8-14.3); White Blood Cell 9.6 10^3/uL (4.4-10.8)
[2019-12-14] MEDS ORDERED: MORPHINE SULFATE 4 MG/ML SYR/VIAL IV ONE (21:45)
[2019-12-14] MEDS ORDERED: SODIUM CHLORIDE 0.9% 1,000 ML IV ONE (21:45)
[2019-12-14] MEDS ORDERED: ONDANSETRON HCL 4 MG/2 ML VIAL IV ONE (21:45)
[2019-12-14 21:51] LABS: Albumin 3.1 g/dL (3.4-5.0); Calcium 8.9 mg/dL (8.5-10.1); Magnesium 1.6 mg/dL (1.6-2.6)
[2019-12-14 21:56] LABS: BUN/Creatinine Ratio 2.2; Bilirubin, Total 0.5 mg/dL (0.2-1.0); Total Protein 8.1 g/dL (6.4-8.2)
[2019-12-14 22:01] LABS: Potassium 2.8 mmol/L (3.5-5.1)
[2019-12-15] MEDS ORDERED: KETOROLAC TROMETH 15 mg/ml 1ML VL IV ONE (00:15)
[2019-12-15] MEDS ORDERED: KETOROLAC TROMETH 30 MG/ML 1ML VIAL ONE (00:38)
[2019-12-15 01:01] VITALS: BP 117/76
[2019-12-15] MEDS ORDERED: POTASSIUM EFFERVESENT TAB 25 MEQ PO ONE (01:45)
[2019-12-15 01:51] LABS: Urine Bacteria FEW /hpf (None Seen); Urine Blood 2+ /uL (Negative); Urine Hyaline Cast FEW /lpf (0 - 2); Urine Mucus FEW (None Seen); Urine Specific Gravity 1.007 (1.001-1.035); Urine WBC 4 /hpf (0 - 5)
[2019-12-15] MEDS ORDERED: LORazepam 0.5 MG TAB PO ONE (02:00)
[2019-12-15] MEDS ORDERED: SODIUM CHLORIDE 0.9% 1,000 ML IV SCH (02:21)
[2019-12-15] MEDS ORDERED: ACETAMINOPHEN 325 MG TAB PO PRN (02:30)
[2019-12-15] MEDS ORDERED: TEMAZEPAM 15 MG CAP PO PRN (02:30)
[2019-12-15] MEDS ORDERED: KETOROLAC TROMETH 15 mg/ml 1ML VL IV PRN (02:30)
[2019-12-15] MEDS ORDERED: HYDROcodone-ACET 5/325MG TAB PO PRN (02:30)
[2019-12-15] MEDS ORDERED: ONDANSETRON HCL 4 MG/2 ML VIAL IV PRN (02:30)
[2019-12-15] MEDS ORDERED: TAMSULOSIN HYDROCHLORIDE 0.4 MG CAP PO ONE (02:45)
[2019-12-15 02:49] LABS: Alcohol, Urine < 3.0 mg/dL (0-5); Amphetamine Screen, Urine NEGATIVE (NEGATIVE); Barbiturate Scree,Urine NEGATIVE (NEGATIVE); Benzodiazephine Screen, Urine NEGATIVE (NEGATIVE); Cannabinoid Screen, Urine POSITIVE (NEGATIVE); Cocaine Screen, Urine POSITIVE (NEGATIVE); Opiate Scree,Urine POSITIVE (NEGATIVE); Phencyclidine Screen, Urine NEGATIVE (NEGATIVE)
[2019-12-15] MEDS ORDERED: cefTRIAXone 1GM/50ML D5W 50 ML IV SCH (03:00)
[2019-12-15] MEDS ORDERED: PANTOPRAZOLE 40 MG TAB PO SCH (10:00)
[2019-12-15] MEDS ORDERED: SERTRALINE HCL 50 MG TAB PO SCH (10:00)
== END 2019-12-15 02:50 | disposition left against medical advice (07) ==
LOC: EDBD 21:01 → ER 21:06
DX: N20.0 Calculus of kidney (principal); N13.30 Unspecified hydronephrosis; Z79.899 Other long term (current) drug therapy; Z91.040 Latex allergy status
CPT/HCPCS: 36415; 74176; 80053; 80307; 81001; 82150; 83690; 83735; 84702; 85025; 96361; 96374; 96375; 99285; J2270; J2405; J7030; J1885

== ENCOUNTER 2020-01-05 22:52 | Emergency (ER) | payer MEDICAID ==
[~2020-01-05] VITALS: Ht 165.1 cm; Wt 99.8 kg
[2020-01-05 23:38] LABS: Basophils # (auto) 0.1 10 ^3/uL (0-0.2); Basophils % (auto) 0.7 % (0.0-2.0); Eosinophils # (auto) 0 10 ^3/uL (0-0.8); Eosinophils % (auto) 0.6 % (0.0-7.0); Hematocrit 41.3 % (36.0-46.0); Hemoglobin 13.5 g/dL (12.2-16.2); Lymphocytes # (auto) 1.6 10 ^3/uL (0.4-5.4); Lymphocytes % (auto) 20.9 % (10.0-50.0); Mean Corpuscular Hemoglobin 28.8 pg (28.0-32.0); Mean Corpuscular Hgb Conc. 32.8 g/dL (32.0-36.0); Mean Corpuscular Volume 87.8 fL (80.0-100.0); Monocytes # (auto) 0.4 10 ^3/uL (0-1.3); Monocytes % (auto) 4.7 % (0.0-12.0); Neutrophils # (auto) 5.5 10 ^3/uL (1.6-8.6); Neutrophils % (auto) 73.1 % (37.0-80.0); Nucleated Red Blood Cells % 0.1 %; Platelet Count (auto) 385 10^3/uL (140-450); Red Cell Distribution Width 18.7 % (11.8-14.3); White Blood Cell 7.5 10^3/uL (4.4-10.8)
[2020-01-05] MEDS ORDERED: MORPHINE SULFATE 4 MG/ML SYR/VIAL IV ONE (23:45)
[2020-01-05] MEDS ORDERED: SODIUM CHLORIDE 0.9% 1,000 ML IV ONE (23:45)
[2020-01-05] MEDS ORDERED: ONDANSETRON HCL 4 MG/2 ML VIAL IV ONE (23:45)
[2020-01-05 23:56] LABS: Albumin 3.2 g/dL (3.4-5.0); BUN/Creatinine Ratio 2.4; Calcium 8.7 mg/dL (8.5-10.1); Magnesium 1.8 mg/dL (1.6-2.6); Potassium 3.4 mmol/L (3.5-5.1)
[2020-01-05 23:59] LABS: Bilirubin, Total 0.3 mg/dL (0.2-1.0); Total Protein 8.8 g/dL (6.4-8.2)
[2020-01-06 00:13] VITALS: BP 115/97
[2020-01-06] MEDS ORDERED: PROMETHAZINE HCL 25 MG/ML 1ML IV ONE (00:45)
[2020-01-06] MEDS ORDERED: KETOROLAC TROMETH 30 MG/ML 1ML VIAL IV ONE (00:45)
[2020-01-06] MEDS ORDERED: PROMETHAZINE HCL 25 MG/ML 1ML ONE (00:49)
[2020-01-06] MEDS ORDERED: SODIUM CHLORIDE 0.9% 1,000 ML IV ONE (01:00)
[2020-01-06] MEDS ORDERED: LORazepam 2MG/ML-1ML VIAL IV ONE (01:30)
[2020-01-06 02:09] LABS: Urine Bacteria FEW /hpf (None Seen); Urine Blood Negative /uL (Negative); Urine Hyaline Cast MOD /lpf (0 - 2); Urine Mucus MODERATE (None Seen); Urine Specific Gravity 1.023 (1.001-1.035); Urine WBC 2 /hpf (0 - 5)
== END 2020-01-06 02:39 | disposition home or self-care (01) ==
LOC: ER 22:52
DX: N20.0 Calculus of kidney (principal); N39.0 Urinary tract infection, site not specified; N83.201 Unspecified ovarian cyst, right side; Z79.899 Other long term (current) drug therapy; Z91.040 Latex allergy status
CPT/HCPCS: 36415; 74176; 80053; 81001; 82150; 83690; 83735; 85025; 96361; 96374; 96375; 99284; J1885; J2060; J2270; J2405; J2550; J7030

== ENCOUNTER 2020-09-18 09:34 | Emergency (ER) | payer MEDICAID ==
[~2020-09-18] VITALS: Ht 165.1 cm; Wt 83.9 kg
[2020-09-18] MEDS ORDERED: ONDANSETRON HCL 4 MG/2 ML VIAL IV ONE ×3 (10:15→17:15)
[2020-09-18] MEDS ORDERED: HYDROmorphone HCL 2 MG/ML VL IV ONE ×3 (10:15→17:15)
[2020-09-18] MEDS ORDERED: SODIUM CHLORIDE 0.9% 1,000 ML IV ONE (10:15)
[2020-09-18 10:19] LABS: Basophils # (auto) 0 10 ^3/uL (0-0.2); Basophils % (auto) 0.4 % (0.0-2.0); Eosinophils # (auto) 0 10 ^3/uL (0-0.8); Hemoglobin 12.4 g/dL (12.2-16.2); Lymphocytes % (auto) 15.9 % (10.0-50.0); Mean Corpuscular Hemoglobin 28.8 pg (28.0-32.0); Mean Corpuscular Hgb Conc. 32.7 g/dL (32.0-36.0); Monocytes # (auto) 0.1 10 ^3/uL (0-1.3); Monocytes % (auto) 1.7 % (0.0-12.0); Neutrophils # (auto) 5.2 10 ^3/uL (1.6-8.6); Nucleated Red Blood Cells % 0.1 %; Platelet Count (auto) 382 10^3/uL (140-450); Red Blood Cells 4.32 10^6/uL (4.0-5.20); Red Cell Distribution Width 17.6 % (11.8-14.3); White Blood Cell 6.3 10^3/uL (4.4-10.8)
[2020-09-18 10:38] LABS: Albumin 3.3 g/dL (3.4-5.0); Calcium 7.9 mg/dL (8.5-10.1); Potassium 3.4 mmol/L (3.5-5.1)
[2020-09-18 10:40] VITALS: BP 93/57
[2020-09-18 10:42] LABS: BUN/Creatinine Ratio 1.3; Bilirubin, Total 0.3 mg/dL (0.2-1.0); Total Protein 7.8 g/dL (6.4-8.2)
== END 2020-09-18 17:24 | disposition home or self-care (01) ==
LOC: EDBD 09:34 → ER 09:34
DX: N20.0 Calculus of kidney (principal); F12.10 Cannabis abuse, uncomplicated
CPT/HCPCS: 36415; 74176; 80053; 84702; 85025; 96361; 96374; 96375; 96376; 99284; J1170; J2405; J7030

== ENCOUNTER 2020-11-25 08:46 | Emergency (ER) | payer MEDICAID ==
[~2020-11-25] VITALS: Ht 165.1 cm; Wt 99.8 kg
[2020-11-25] MEDS ORDERED: ONDANSETRON HCL 4 MG/2 ML VIAL ONE (08:51)
[2020-11-25] MEDS ORDERED: KETOROLAC TROMETH 30 MG/ML 1ML VIAL ONE (08:51)
[2020-11-25] MEDS ORDERED: KETOROLAC TROMETH 30 MG/ML 1ML VIAL IV ONE ×2 (09:00→12:00)
[2020-11-25] MEDS ORDERED: SODIUM CHLORIDE 0.9% 1,000 ML IV ONE (09:00)
[2020-11-25] MEDS ORDERED: ONDANSETRON HCL 4 MG/2 ML VIAL IV ONE (09:00)
[2020-11-25 09:46] LABS: Albumin 3.1 g/dL (3.4-5.0); Calcium 8.3 mg/dL (8.5-10.1); Potassium 3.3 mmol/L (3.5-5.1)
[2020-11-25 09:49] LABS: BUN/Creatinine Ratio 3.3; Bilirubin, Total 0.4 mg/dL (0.2-1.0); Total Protein 7.3 g/dL (6.4-8.2)
[2020-11-25 10:24] LABS: Basophils # (auto) 0 10 ^3/uL (0-0.2); Basophils % (auto) 0.3 % (0.0-2.0); Eosinophils # (auto) 0 10 ^3/uL (0-0.8); Hematocrit 35.2 % (36.0-46.0); Hemoglobin 11.3 g/dL (12.2-16.2); Lymphocytes # (auto) 1.5 10 ^3/uL (0.4-5.4); Lymphocytes % (auto) 15.5 % (10.0-50.0); Mean Corpuscular Hemoglobin 28.1 pg (28.0-32.0); Mean Corpuscular Hgb Conc. 32.1 g/dL (32.0-36.0); Mean Corpuscular Volume 87.5 fL (80.0-100.0); Monocytes # (auto) 0.5 10 ^3/uL (0-1.3); Monocytes % (auto) 4.8 % (0.0-12.0); Neutrophils # (auto) 7.5 10 ^3/uL (1.6-8.6); Neutrophils % (auto) 79.4 % (37.0-80.0); Platelet Count (auto) 291 10^3/uL (140-450); Red Blood Cells 4.02 10^6/uL (4.0-5.20); Red Cell Distribution Width 21.4 % (11.8-14.3); White Blood Cell 9.5 10^3/uL (4.4-10.8)
[2020-11-25] MEDS ORDERED: THIAMINE 100mg/ml INJ (200mg/2ml VIAL) IV ONE (10:45)
[2020-11-25] MEDS ORDERED: PROMETHAZINE HCL 25 MG/ML 1ML IV ONE (10:45)
[2020-11-25 10:48] LABS: Amphetamine Screen, Urine NEGATIVE (NEGATIVE); Barbiturate Scree,Urine NEGATIVE (NEGATIVE); Benzodiazephine Screen, Urine NEGATIVE (NEGATIVE); Cannabinoid Screen, Urine POSITIVE (NEGATIVE); Cocaine Screen, Urine NEGATIVE (NEGATIVE); Opiate Scree,Urine NEGATIVE (NEGATIVE); Phencyclidine Screen, Urine NEGATIVE (NEGATIVE); Urine Bacteria NONE SEEN /hpf (None Seen); Urine Blood TRACE /uL (Negative); Urine Specific Gravity 1.011 (1.001-1.035); Urine WBC 1 /hpf (0 - 5)
[2020-11-25 10:50] VITALS: BP 124/89
[2020-11-25] MEDS ORDERED: POTASSIUM EFFERVESENT TAB 25 MEQ PO ONE (12:15)
== END 2020-11-25 13:18 | disposition home or self-care (01) ==
LOC: ER 08:46 → EDBD 08:46 → ER 13:18
DX: N20.0 Calculus of kidney (principal); E86.0 Dehydration; E87.6 Hypokalemia; Z32.02 Encounter for pregnancy test, result negative
CPT/HCPCS: 36415; 74176; 80053; 80307; 80320; 81001; 81025; 83690; 84702; 85025; 96361; 96374; 96375; 96376; 99284; J1885; J2405; J2550; J3411; J7030

== ENCOUNTER 2021-01-15 18:17 | Emergency (ER) | payer MEDICAID ==
[~2021-01-15] VITALS: Ht 165.1 cm; Wt 98.0 kg
[2021-01-15 19:28] LABS: Urine Bacteria FEW /hpf (None Seen); Urine Blood 2+ /uL (Negative); Urine Mucus FEW (None Seen); Urine Specific Gravity 1.027 (1.001-1.035); Urine WBC 22 /hpf (0 - 5)
[2021-01-15 19:46] LABS: Amphetamine Screen, Urine POSITIVE (NEGATIVE); Barbiturate Scree,Urine NEGATIVE (NEGATIVE); Benzodiazephine Screen, Urine NEGATIVE (NEGATIVE); Cannabinoid Screen, Urine POSITIVE (NEGATIVE); Cocaine Screen, Urine NEGATIVE (NEGATIVE); Opiate Scree,Urine NEGATIVE (NEGATIVE); Phencyclidine Screen, Urine NEGATIVE (NEGATIVE)
[2021-01-15] MEDS ORDERED: KETOROLAC TROMETH 60MG/2ML VIAL IM ONE (21:15)
[2021-01-15] MEDS ORDERED: ONDANSETRON ODT 4 MG TAB PO ONE (21:15)
[2021-01-15] MEDS ORDERED: SODIUM CHLORIDE 0.9% 1,000 ML IV ONE (23:30)
[2021-01-15] MEDS ORDERED: ONDANSETRON HCL 4 MG/2 ML VIAL IM ONE (23:30)
[2021-01-15] MEDS ORDERED: MORPHINE SULF INJ 2 MG/ML SYRINGE 1ML IV ONE (23:30)
[2021-01-16 00:39] LABS: Basophils # (auto) 0.1 10 ^3/uL (0-0.2); Basophils % (auto) 0.7 % (0.0-2.0); Eosinophils # (auto) 0 10 ^3/uL (0-0.8); Eosinophils % (auto) 0.4 % (0.0-7.0); Hemoglobin 12.1 g/dL (12.2-16.2); Monocytes # (auto) 0.3 10 ^3/uL (0-1.3)
[2021-01-16 00:41] LABS: Hematocrit 37.5 % (36.0-46.0); Lymphocytes # (auto) 1.6 10 ^3/uL (0.4-5.4); Lymphocytes % (auto) 22.3 % (10.0-50.0); Mean Corpuscular Hemoglobin 27.7 pg (28.0-32.0); Mean Corpuscular Hgb Conc. 32.2 g/dL (32.0-36.0); Mean Corpuscular Volume 85.9 fL (80.0-100.0); Monocytes % (auto) 4.7 % (0.0-12.0); Neutrophils # (auto) 5.3 10 ^3/uL (1.6-8.6); Neutrophils % (auto) 71.9 % (37.0-80.0); Nucleated Red Blood Cells % 0.1 %; Platelet Count (auto) 609 10^3/uL (140-450); Red Blood Cells 4.36 10^6/uL (4.0-5.20); White Blood Cell 7.3 10^3/uL (4.4-10.8)
[2021-01-16] MEDS ORDERED: HYDROmorphone HCL 2 MG/ML VL IV ONE ×3 (00:45→02:30)
[2021-01-16 00:49] LABS: Red Cell Distribution Width 20.9 % (11.8-14.3)
[2021-01-16 00:57] LABS: Albumin 2.8 g/dL (3.4-5.0); BUN/Creatinine Ratio 5.4
[2021-01-16 00:59] LABS: Bilirubin, Total 0.3 mg/dL (0.2-1.0)
[2021-01-16] MEDS ORDERED: metroNIDAZOLE 500MG/100ML 100 ML IV ONE (01:15)
[2021-01-16] MEDS ORDERED: cefTRIAXone 1GM/50ML D5W 50 ML IV ONE (01:15)
[2021-01-16] MEDS ORDERED: LORazepam 0.5 MG TAB PO ONE (01:45)
[2021-01-16] MEDS ORDERED: ONDANSETRON HCL 4 MG/2 ML VIAL ONE (04:11)
[2021-01-16] MEDS ORDERED: ONDANSETRON HCL 4 MG/2 ML VIAL IV ONE (04:15)
[2021-01-16 04:50] VITALS: BP 127/93
== END 2021-01-16 04:55 | disposition home or self-care (01) ==
LOC: ER 18:18
DX: N39.0 Urinary tract infection, site not specified (principal); K52.9 Noninfective gastroenteritis and colitis, unspecified; R11.2 Nausea with vomiting, unspecified; F41.9 Anxiety disorder, unspecified; F32.9 Major depressive disorder, single episode, unspecified; Z87.442 Personal history of urinary calculi; Z91.040 Latex allergy status; Z79.899 Other long term (current) drug therapy; Z98.890 Other specified postprocedural states
CPT/HCPCS: 36415; 74176; 80053; 80307; 81001; 81025; 83605; 85025; 93005; 96361; 96365; 96368; 96372; 96375; 96376; 99285; J0696; J1170; J1885; J2270; J2405; J3490; Q0162

== ENCOUNTER 2021-05-22 04:01 | Emergency (ER) | payer MEDICAID ==
[~2021-05-22] VITALS: Ht 165.1 cm; Wt 81.6 kg
[2021-05-22 06:23] LABS: Alcohol, Urine < 3.0 mg/dL (0-10); Amphetamine Screen, Urine NEGATIVE (NEGATIVE); Barbiturate Scree,Urine NEGATIVE (NEGATIVE); Benzodiazephine Screen, Urine POSITIVE (NEGATIVE); Cannabinoid Screen, Urine POSITIVE (NEGATIVE); Cocaine Screen, Urine NEGATIVE (NEGATIVE); Phencyclidine Screen, Urine NEGATIVE (NEGATIVE); Urine Amorphous Crystal MANY /hpf (None Seen); Urine Bacteria MOD /hpf (None Seen); Urine Mucus MANY (None Seen); Urine WBC 34 /hpf (0 - 5)
[2021-05-22 06:24] LABS: Urine Blood 2+ /uL (Negative); Urine Specific Gravity 1.031 (1.001-1.035)
[2021-05-22 06:30] LABS: Opiate Scree,Urine NEGATIVE (NEGATIVE)
[2021-05-22 07:13] LABS: Basophils # (auto) 0 10 ^3/uL (0-0.2); Basophils % (auto) 0.2 % (0.0-2.0); Eosinophils # (auto) 0 10 ^3/uL (0-0.8); Lymphocytes # (auto) 1.4 10 ^3/uL (0.4-5.4); Monocytes # (auto) 0.4 10 ^3/uL (0-1.3)
[2021-05-22 07:18] LABS: Hematocrit 39.9 % (36.0-46.0); Hemoglobin 13.2 g/dL (12.2-16.2); Lymphocytes % (auto) 14.7 % (10.0-50.0); Mean Corpuscular Hemoglobin 27.6 pg (28.0-32.0); Mean Corpuscular Volume 83.6 fL (80.0-100.0); Monocytes % (auto) 4.8 % (0.0-12.0); Neutrophils # (auto) 7.4 10 ^3/uL (1.6-8.6); Neutrophils % (auto) 80.3 % (37.0-80.0); Nucleated Red Blood Cells % 0.2 %; Red Blood Cells 4.77 10^6/uL (4.0-5.20); Red Cell Distribution Width 19.9 % (11.8-14.3); White Blood Cell 9.2 10^3/uL (4.4-10.8)
[2021-05-22 07:23] LABS: Albumin 3.6 g/dL (3.4-5.0); Calcium 9.3 mg/dL (8.5-10.1); Potassium 3.3 mmol/L (3.5-5.1)
[2021-05-22 07:26] LABS: Bilirubin, Total 0.5 mg/dL (0.2-1.0)
[2021-05-22] MEDS ORDERED: ONDANSETRON ODT 4 MG TAB PO ONE ×2 (07:36→07:45)
[2021-05-22] MEDS ORDERED: SODIUM CHLORIDE 0.9% 1,000 ML IV ONE (08:00)
[2021-05-22] MEDS ORDERED: cefTRIAXone 1GM/50ML D5W 50 ML IV ONE ×3 (08:00→08:15)
[2021-05-22] MEDS ORDERED: KETOROLAC TROMETH 30 MG/ML 1ML VIAL IV ONE (08:00)
[2021-05-22] MEDS ORDERED: KETOROLAC TROMETH 30 MG/ML 1ML VIAL ONE (08:02)
[2021-05-22 11:01] VITALS: BP 146/99
== END 2021-05-22 11:01 | disposition home or self-care (01) ==
LOC: EDBD 04:01 → ER 04:01
DX: N20.0 Calculus of kidney (principal); F12.10 Cannabis abuse, uncomplicated; F15.10 Other stimulant abuse, uncomplicated; R11.2 Nausea with vomiting, unspecified; R19.7 Diarrhea, unspecified; Z79.899 Other long term (current) drug therapy; Z91.040 Latex allergy status
CPT/HCPCS: 36415; 74176; 80053; 80307; 81001; 81025; 82150; 85025; 87086; 96365; 96375; 99284; J0696; J1885; J7030; Q0162

== ENCOUNTER 2021-10-09 09:27 | Emergency (ER) | payer MEDICAID ==
[~2021-10-09] VITALS: Ht 165.1 cm; Wt 99.8 kg
[2021-10-09 10:24] LABS: Basophils # (auto) 0 10 ^3/uL (0-0.2); Basophils % (auto) 0.2 % (0.0-2.0); Eosinophils # (auto) 0 10 ^3/uL (0-0.8); Lymphocytes # (auto) 0.8 10 ^3/uL (0.4-5.4); Lymphocytes % (auto) 7.2 % (10.0-50.0); Mean Corpuscular Hemoglobin 27.3 pg (28.0-32.0); Mean Corpuscular Hgb Conc. 32.3 g/dL (32.0-36.0); Mean Corpuscular Volume 84.5 fL (80.0-100.0); Monocytes # (auto) 0.3 10 ^3/uL (0-1.3); Monocytes % (auto) 2.1 % (0.0-12.0); Neutrophils # (auto) 10.6 10 ^3/uL (1.6-8.6); Neutrophils % (auto) 90.5 % (37.0-80.0); Red Blood Cells 4.39 10^6/uL (4.0-5.20); White Blood Cell 11.7 10^3/uL (4.4-10.8)
[2021-10-09] MEDS ORDERED: MORPHINE SULFATE INJECTION 2 MG/ML SYRG IV ONE ×2 (10:30→12:45)
[2021-10-09] MEDS ORDERED: PROCHLORPERAZINE EDISYLATE 5 MG/ML 2ML VIAL IV ONE (10:30)
[2021-10-09 10:41] LABS: Albumin 3.9 g/dL (3.4-5.0); Calcium 9.4 mg/dL (8.5-10.1); Potassium 3.3 mmol/L (3.5-5.1)
[2021-10-09 10:44] LABS: Bilirubin, Total 0.5 mg/dL (0.2-1.0); Total Protein 8.7 g/dL (6.4-8.2)
[2021-10-09 11:33] LABS: Urine Bacteria NONE SEEN /hpf (None Seen); Urine Blood TRACE /uL (Negative); Urine Mucus FEW (None Seen); Urine Specific Gravity 1.036 (1.001-1.035); Urine WBC 3 /hpf (0 - 5)
[2021-10-09 11:42] LABS: Amphetamine Screen, Urine NEGATIVE (NEGATIVE); Barbiturate Scree,Urine NEGATIVE (NEGATIVE); Cannabinoid Screen, Urine POSITIVE (NEGATIVE); Cocaine Screen, Urine POSITIVE (NEGATIVE); Phencyclidine Screen, Urine NEGATIVE (NEGATIVE)
[2021-10-09] MEDS ORDERED: CEPH-509 PO (11:42)
[2021-10-09 11:49] LABS: Benzodiazephine Screen, Urine NEGATIVE (NEGATIVE); Opiate Scree,Urine NEGATIVE (NEGATIVE)
[2021-10-09] MEDS ORDERED: ONDANSETRON HCL 4 MG/2 ML VIAL IV ONE (12:45)
[2021-10-09 13:26] VITALS: BP 138/62
== END 2021-10-09 13:30 | disposition home or self-care (01) ==
LOC: ER 09:27 → EDBD 09:27 → ER 13:29
DX: E86.0 Dehydration (principal); F12.10 Cannabis abuse, uncomplicated; F15.10 Other stimulant abuse, uncomplicated; Z91.040 Latex allergy status
CPT/HCPCS: 36415; 80053; 80307; 81001; 83605; 83690; 85025; 87040; 96374; 96375; 96376; 99285; J0780; J2270; J2405

== ENCOUNTER 2021-10-10 09:42 | Emergency (ER) | payer MEDICAID ==
[~2021-10-10] VITALS: Ht 165.1 cm; Wt 99.8 kg
[~2021-10-10 09:42] MED LIST changes: +CEPH-509 PO
[2021-10-10 09:54] VITALS: BP 133/99
== END 2021-10-10 11:30 | disposition left against medical advice (07) ==
LOC: ER 09:42 → EDBD 09:42 → ER 11:30
DX: M79.10 Myalgia, unspecified site (principal); L03.115 Cellulitis of right lower limb; Z79.899 Other long term (current) drug therapy; Z91.040 Latex allergy status

== ENCOUNTER 2021-10-31 11:40 | Emergency (ER) | payer MEDICAID, OTHER ==
[~2021-10-31] VITALS: Ht 165.1 cm; Wt 90.7 kg
[2021-10-31] MEDS ORDERED: LORazepam 2MG/ML-1ML VIAL IV ONE (12:30)
[2021-10-31] MEDS ORDERED: KETOROLAC TROMETH 30 MG/ML 1ML VIAL IV ONE (13:45)
[2021-10-31] MEDS ORDERED: HYDROmorphone HCL 2 MG/ML VL IV ONE (15:00)
[2021-10-31] MEDS ORDERED: IBU600T PO (16:04)
[2021-10-31 16:50] VITALS: BP 149/92
[2021-10-31] MEDS ORDERED: LORazepam 0.5 MG TAB PO ONE (17:00)
[2021-10-31] MEDS ORDERED: HYDROcodone-ACET 10/325MG TAB PO ONE (17:00)
== END 2021-10-31 17:22 | disposition home or self-care (01) ==
LOC: EDBD 11:40 → EDUNIT# 11:40 → ER 11:40
DX: S09.90XA Unspecified injury of head, initial encounter (principal); R07.9 Chest pain, unspecified; R06.02 Shortness of breath; Z79.899 Other long term (current) drug therapy; Z91.040 Latex allergy status; Y04.2XXA Assault by strike against or bumped into by another person, initial encounter; Y93.89 Activity, other specified; Y92.89 Other specified places as the place of occurrence of the external cause; Y99.8 Other external cause status
CPT/HCPCS: 70450; 70486; 71250; 96374; 96375; 99285; J1170; J1885; J2060

== ENCOUNTER 2022-02-10 17:28 | Emergency (ER) | payer MEDICAID ==
[~2022-02-10] VITALS: Ht 165.1 cm; Wt 104.3 kg
[~2022-02-10 17:28] MED LIST changes: +IBU600T PO
[2022-02-10 17:40] VITALS: BP 175/102
[2022-02-10] MEDS ORDERED: SODIUM CHLORIDE 0.9% 1,000 ML IVB ONE (17:45)
[2022-02-10] MEDS ORDERED: ONDANSETRON HCL 4 MG/2 ML VIAL IV ONE (17:45)
[2022-02-10] MEDS ORDERED: KETOROLAC TROMETH 30 MG/ML 1ML VIAL IV ONE (17:45)
[2022-02-10] MEDS ORDERED: LORazepam 2MG/ML-1ML VIAL IV ONE (18:00)
[2022-02-10 18:43] LABS: Eosinophils # (auto) 0 10 ^3/uL (0-0.8); Monocytes # (auto) 0.3 10 ^3/uL (0-1.3); Nucleated Red Blood Cells % 0.1 %
[2022-02-10 18:44] LABS: Basophils # (auto) 0 10 ^3/uL (0-0.2); Basophils % (auto) 0.2 % (0.0-2.0); Hematocrit 37.2 % (36.0-46.0); Hemoglobin 11.9 g/dL (12.2-16.2); Lymphocytes % (auto) 12.3 % (10.0-50.0); Mean Corpuscular Hemoglobin 26.4 pg (28.0-32.0); Mean Corpuscular Hgb Conc. 31.9 g/dL (32.0-36.0); Mean Corpuscular Volume 82.6 fL (80.0-100.0); Monocytes % (auto) 3.8 % (0.0-12.0); Neutrophils # (auto) 6.6 10 ^3/uL (1.6-8.6); Neutrophils % (auto) 83.7 % (37.0-80.0); Red Blood Cells 4.51 10^6/uL (4.0-5.20); Red Cell Distribution Width 18.4 % (11.8-14.3); White Blood Cell 7.9 10^3/uL (4.4-10.8)
[2022-02-10 18:56] LABS: Albumin 3.5 g/dL (3.4-5.0); BUN/Creatinine Ratio 9.1; Calcium 9.2 mg/dL (8.5-10.1); INR 1.05 (0.9-1.15); Partial Thromboplastin Time 27.3 sec (23.6-33.0); Potassium 3.1 mmol/L (3.5-5.1)
[2022-02-10 18:59] LABS: Bilirubin, Total 0.3 mg/dL (0.2-1.0); Total Protein 7.7 g/dL (6.4-8.2)
== END 2022-02-10 19:19 | disposition left against medical advice (07) ==
LOC: EDBD 17:28 → ER 17:28
DX: R10.11 Right upper quadrant pain (principal); R10.2 Pelvic and perineal pain; F41.9 Anxiety disorder, unspecified; R11.2 Nausea with vomiting, unspecified; Z79.1 Long term (current) use of non-steroidal anti-inflammatories (NSAID); Z79.899 Other long term (current) drug therapy; Z91.040 Latex allergy status
CPT/HCPCS: 36415; 80053; 80320; 82150; 83690; 84702; 85025; 85610; 85730